=== PATIENT | male | born 1960 | race African-American/Black ===

== ENCOUNTER 2021-03-30 09:53 | Inpatient (IN) | payer OTHER ==
[2021-03-30] MEDS ORDERED: IBUPROFEN 400 MG TABLET (FP) PO PRN (11:02)
[2021-03-30] MEDS ORDERED: MAGNESIUM CITRATE 300 ML BOTTLE PO PRN (11:02)
[2021-03-30] MEDS ORDERED: MAGNESIUM HYDROX 2400MG/30ML ORAL SUSPENSION 30 ML CUP PO PRN (11:02)
[2021-03-30] MEDS ORDERED: diazePAM 5 MG TABLET PO PRN (11:02)
[2021-03-30] MEDS ORDERED: MENTHOL/PHENOL 1 EACH UD MM PRN (11:02)
[2021-03-30] MEDS ORDERED: MAG HYDROX/AL HYDROX/SIMETH 30 ML UNIT-DOSE CUP PO PRN (11:02)
[2021-03-30] MEDS ORDERED: ONDANSETRON *ODT* 4 MG TABLET SL PRN (11:02)
[2021-03-30] MEDS ORDERED: ACETAMINOPHEN 325 MG TABLET (FP) PO PRN ×2 (11:02)
[2021-03-30] MEDS ORDERED: BISMUTH SUBSALICYLATE 524 MG/30 ML PO PRN (11:02)
[2021-03-30] MEDS: hydrOXYzine PAMOATE 25 MG CAPSULE (FP) PO SCH ×3 (13:11→22:52)
[2021-03-30] MEDS: METHOCARBAMOL 500 MG TABLET PO PRN (13:12)
[2021-03-30 13:53] LABS: HEMATOCRIT 42.2 % (35.4-49); HEMOGLOBIN 14.4 GM/dL (11.7-16.9); MCHC 34.2 g/dl (32.0-35.9); MEAN CELL VOLUME 96.5 fl (80-96); MEAN PLT VOLUME 9.3 fl (7.5-11.1); PLATELET COUNT 319 10^3/uL (134-434); RBC 4.37 M/mm3 (4.00-5.60); RDW 13.7 % (11.9-15.9); WHITE BLOOD COUNT 6.1 K/mm3 (4.0-10.0)
[2021-03-30 14:03] LABS: CALCIUM 9.8 mg/dL (8.5-10.1)
[2021-03-30 14:04] LABS: BLOOD UREA NITROGEN 21.4 mg/dL (7-18)
[2021-03-30 14:07] LABS: CREATININE 1.5 mg/dL (0.55-1.3)
[2021-03-30 14:09] LABS: BILIRUBIN,TOTAL 1.1 mg/dL (0.2-1); TOT PROT 7.6 g/dl (6.4-8.2)
[2021-03-30] MEDS: HYDROCHLOROTHIAZIDE 25 MG TABLET (FP) PO SCH (18:55)
[2021-03-30] MEDS: diazePAM 5 MG TABLET PO SCH ×2 (18:55→22:53)
[2021-03-30] MEDS: THIAMINE HCL 100 MG TABLET (FP) PO SCH (22:52)
[2021-03-30] MEDS: MELATONIN 5 MG TABLETS PO SCH (22:52)
[2021-03-30] MEDS: MIRTAZAPINE 15 MG TABLET (FP) PO SCH (22:52)
[2021-03-31] MEDS: hydrOXYzine PAMOATE 25 MG CAPSULE (FP) PO SCH ×5 (05:42→22:23)
[2021-03-31] MEDS: diazePAM 5 MG TABLET PO SCH ×4 (05:42→22:24)
[2021-03-31] MEDS: METHOCARBAMOL 500 MG TABLET PO PRN (10:21)
[2021-03-31] MEDS: PRENATAL VITAMINS W/ FOLIC ACID TABLET (FP) PO SCH (10:21)
[2021-03-31] MEDS: HYDROCHLOROTHIAZIDE 25 MG TABLET (FP) PO SCH (10:21)
[2021-03-31] MEDS: ARIPiprazole 2 MG TABLET PO SCH (10:21)
[2021-03-31] MEDS: MELATONIN 5 MG TABLETS PO SCH (22:23)
[2021-03-31] MEDS: THIAMINE HCL 100 MG TABLET (FP) PO SCH (22:23)
[2021-03-31] MEDS: MIRTAZAPINE 15 MG TABLET (FP) PO SCH (22:25)
[2021-04-01] MEDS: diazePAM 5 MG TABLET PO SCH ×3 (06:00→21:54)
[2021-04-01] MEDS: hydrOXYzine PAMOATE 25 MG CAPSULE (FP) PO SCH ×5 (06:00→21:54)
[2021-04-01] MEDS: METHOCARBAMOL 500 MG TABLET PO PRN (10:31)
[2021-04-01] MEDS: HYDROCHLOROTHIAZIDE 25 MG TABLET (FP) PO SCH (10:31)
[2021-04-01] MEDS: ARIPiprazole 2 MG TABLET PO SCH (10:31)
[2021-04-01] MEDS: PRENATAL VITAMINS W/ FOLIC ACID TABLET (FP) PO SCH (10:32)
[2021-04-01] MEDS: THIAMINE HCL 100 MG TABLET (FP) PO SCH (21:54)
[2021-04-01] MEDS: MIRTAZAPINE 15 MG TABLET (FP) PO SCH (21:54)
[2021-04-01] MEDS: MELATONIN 5 MG TABLETS PO SCH (21:54)
[2021-04-02] MEDS: hydrOXYzine PAMOATE 25 MG CAPSULE (FP) PO SCH ×5 (06:48→22:16)
[2021-04-02] MEDS: diazePAM 5 MG TABLET PO SCH ×2 (06:48→17:37)
[2021-04-02] MEDS: PRENATAL VITAMINS W/ FOLIC ACID TABLET (FP) PO SCH (10:24)
[2021-04-02] MEDS: HYDROCHLOROTHIAZIDE 25 MG TABLET (FP) PO SCH (10:25)
[2021-04-02] MEDS: ARIPiprazole 2 MG TABLET PO SCH (11:45)
[2021-04-02 14:22] LABS: BLOOD UREA NITROGEN 19.3 mg/dL (7-18)
[2021-04-02 14:25] LABS: CREATININE 1.1 mg/dL (0.55-1.3)
[2021-04-02] MEDS: MIRTAZAPINE 15 MG TABLET (FP) PO SCH (22:15)
[2021-04-02] MEDS: THIAMINE HCL 100 MG TABLET (FP) PO SCH (22:15)
[2021-04-02] MEDS: MELATONIN 5 MG TABLETS PO SCH (22:15)
[2021-04-03] MEDS: hydrOXYzine PAMOATE 25 MG CAPSULE (FP) PO SCH ×2 (05:39→09:09)
[2021-04-03] MEDS ORDERED: diazePAM 5 MG TABLET PO ONE (06:00)
[2021-04-03] MEDS: PRENATAL VITAMINS W/ FOLIC ACID TABLET (FP) PO SCH (09:09)
[2021-04-03] MEDS: ARIPiprazole 2 MG TABLET PO SCH (09:09)
[2021-04-03] MEDS: HYDROCHLOROTHIAZIDE 25 MG TABLET (FP) PO SCH (09:09)
[2021-04-03 09:28] VITALS: BP 122/93; PULSE 95; TEMP 98.4
== END 2021-04-03 09:11 | disposition home or self-care (01) | DRG 774 ==
LOC: YASAS 09:53 → Y6N 12:09
PROVIDERS: ADMIT Allergy & Immunology; ATTEND Allergy & Immunology
PROC: HZ2ZZZZ Detoxification Services for Substance Abuse Treatment (ICD-10-PCS; principal; 2021-03-30)
DX: F10.230 Alcohol dependence with withdrawal, uncomplicated (principal); F14.20 Cocaine dependence, uncomplicated; F17.210 Nicotine dependence, cigarettes, uncomplicated; F29 Unspecified psychosis not due to a substance or known physiological condition; F32.9 Major depressive disorder, single episode, unspecified; I10 Essential (primary) hypertension; R79.89 Other specified abnormal findings of blood chemistry; Z62.810 Personal history of physical and sexual abuse in childhood; R63.4 Abnormal weight loss; Z68.20 Body mass index [BMI] 20.0-20.9, adult; Z59.0 Homelessness
CPT/HCPCS: 36415; 80053; 82565; 82962; 84520; 85027; 86780; 93005; 93010; C9803; U0003; U0005

== ENCOUNTER 2022-01-30 10:13 | Inpatient (IN) | payer OTHER ==
[2022-01-30 10:42] VITALS: BMI 19.0
[2022-01-30] MEDS ORDERED: P-EPHED 60MG/TRIPROLIDI 2.5MG TABLET PO PRN (10:51)
[2022-01-30] MEDS ORDERED: NICOTINE 10 MG CARTRIDGE (INHALER) IH PRN (10:51)
[2022-01-30] MEDS ORDERED: MAGNESIUM HYDROX 2400MG/30ML ORAL SUSPENSION 30 ML CUP PO PRN (10:51)
[2022-01-30] MEDS ORDERED: MAG HYDROX/AL HYDROX/SIMETH 30 ML UNIT-DOSE CUP PO PRN (10:51)
[2022-01-30] MEDS ORDERED: MAGNESIUM CITRATE 300 ML BOTTLE PO PRN (10:51)
[2022-01-30] MEDS ORDERED: ACETAMINOPHEN 325 MG TABLET (FP) PO PRN (10:51)
[2022-01-30] MEDS ORDERED: guaiFENesin 200 MG/10 ML 10 ML UNIT-DOSE CUPS PO PRN (10:51)
[2022-01-30] MEDS ORDERED: IBUPROFEN 400 MG TABLET (FP) PO PRN (10:51)
[2022-01-30] MEDS ORDERED: LOPERAMIDE HCL 2 MG CAPSULE PO PRN (10:51)
[2022-01-30] MEDS ORDERED: cloNIDine HCL 0.1 MG TABLET PO ONE (12:00)
[2022-01-30] MEDS: hydrOXYzine PAMOATE 25 MG CAPSULE (FP) PO SCH ×3 (15:08→21:19)
[2022-01-30] MEDS: HYDROCHLOROTHIAZIDE 25 MG TABLET (FP) PO SCH (15:13)
[2022-01-30] MEDS: PRENATAL VITAMINS W/ FOLIC ACID TABLET (FP) PO SCH (15:13)
[2022-01-30 15:20] LABS: HEMATOCRIT 39.8 % (35.4-49); HEMOGLOBIN 13.2 GM/dL (11.7-16.9); MCH 32.3 pg (25.7-33.7); MCHC 33.2 g/dl (32.0-35.9); MEAN CELL VOLUME 97.3 fl (80-96); MEAN PLT VOLUME 9.8 fl (7.5-11.1); PLATELET COUNT 260 10^3/uL (134-434); RDW 13.2 % (11.9-15.9); WHITE BLOOD COUNT 4.4 K/mm3 (4.0-10.0)
[2022-01-30 15:29] LABS: ALBUMIN 3.8 g/dl (3.4-5.0); CALCIUM 9.1 mg/dL (8.5-10.1)
[2022-01-30 15:30] LABS: BLOOD UREA NITROGEN 13.1 mg/dL (7-18)
[2022-01-30 15:32] LABS: CREATININE 1.3 mg/dL (0.55-1.3)
[2022-01-30 15:34] LABS: BILIRUBIN,TOTAL 0.7 mg/dL (0.2-1); TOT PROT 6.8 g/dl (6.4-8.2)
[2022-01-30 15:41] LABS: SYPHILIS W/ RPR CONF NON-REACTIVE (NONREACTIVE)
[2022-01-30] MEDS: MELATONIN 5 MG TABLETS PO SCH (21:19)
[2022-01-30] MEDS: THIAMINE HCL 100 MG TABLET (FP) PO SCH (21:20)
[2022-01-31] MEDS: hydrOXYzine PAMOATE 25 MG CAPSULE (FP) PO SCH ×5 (06:07→21:19)
[2022-01-31] MEDS: HYDROCHLOROTHIAZIDE 25 MG TABLET (FP) PO SCH (09:50)
[2022-01-31] MEDS: PRENATAL VITAMINS W/ FOLIC ACID TABLET (FP) PO SCH (09:50)
[2022-01-31] MEDS: NICOTINE 7 MG/24 HOURS TOPICAL PATCH TD SCH (09:50)
[2022-01-31 14:41] LABS: PH,URINE 5.5 (5.0-8.0); URINE APPEARANCE CLEAR; URINE BILIRUBIN NEGATIVE (NEGATIVE); URINE COLOR YELLOW; URINE GLUCOSE (UA) NEGATIVE (NEGATIVE); URINE KETONE NEGATIVE (NEGATIVE); URINE LEUK ESTERASE NEGATIVE (NEGATIVE); URINE NITRITE NEGATIVE (NEGATIVE); URINE PROTEIN NEGATIVE (NEGATIVE); URINE UROBILINOGEN 0.2 mg/dL (0.2-1.0)
[2022-01-31] MEDS: MELATONIN 5 MG TABLETS PO SCH (21:18)
[2022-01-31] MEDS: THIAMINE HCL 100 MG TABLET (FP) PO SCH (21:18)
[2022-02-01] MEDS: hydrOXYzine PAMOATE 25 MG CAPSULE (FP) PO SCH ×5 (06:14→21:47)
[2022-02-01] MEDS: NICOTINE 7 MG/24 HOURS TOPICAL PATCH TD SCH (10:10)
[2022-02-01] MEDS: PRENATAL VITAMINS W/ FOLIC ACID TABLET (FP) PO SCH (10:10)
[2022-02-01] MEDS: HYDROCHLOROTHIAZIDE 25 MG TABLET (FP) PO SCH (10:10)
[2022-02-01] MEDS: MELATONIN 5 MG TABLETS PO SCH (21:47)
[2022-02-01] MEDS: THIAMINE HCL 100 MG TABLET (FP) PO SCH (21:48)
[2022-02-02] MEDS: hydrOXYzine PAMOATE 25 MG CAPSULE (FP) PO SCH ×5 (07:28→21:38)
[2022-02-02] MEDS: NICOTINE 7 MG/24 HOURS TOPICAL PATCH TD SCH (09:36)
[2022-02-02] MEDS: HYDROCHLOROTHIAZIDE 25 MG TABLET (FP) PO SCH (09:36)
[2022-02-02] MEDS: PRENATAL VITAMINS W/ FOLIC ACID TABLET (FP) PO SCH (09:36)
[2022-02-02] MEDS: THIAMINE HCL 100 MG TABLET (FP) PO SCH (21:38)
[2022-02-02] MEDS: MELATONIN 5 MG TABLETS PO SCH (21:38)
[2022-02-03] MEDS: hydrOXYzine PAMOATE 25 MG CAPSULE (FP) PO SCH ×5 (06:49→21:34)
[2022-02-03] MEDS: PRENATAL VITAMINS W/ FOLIC ACID TABLET (FP) PO SCH (09:38)
[2022-02-03] MEDS: NICOTINE 7 MG/24 HOURS TOPICAL PATCH TD SCH (09:38)
[2022-02-03] MEDS: HYDROCHLOROTHIAZIDE 25 MG TABLET (FP) PO SCH (09:38)
[2022-02-03] MEDS: THIAMINE HCL 100 MG TABLET (FP) PO SCH (21:34)
[2022-02-03] MEDS: MELATONIN 5 MG TABLETS PO SCH (21:34)
[2022-02-04] MEDS: hydrOXYzine PAMOATE 25 MG CAPSULE (FP) PO SCH ×2 (07:06→09:59)
[2022-02-04] MEDS: HYDROCHLOROTHIAZIDE 25 MG TABLET (FP) PO SCH (09:59)
[2022-02-04] MEDS: NICOTINE 7 MG/24 HOURS TOPICAL PATCH TD SCH (09:59)
[2022-02-04] MEDS: PRENATAL VITAMINS W/ FOLIC ACID TABLET (FP) PO SCH (09:59)
[2022-02-04] MEDS ORDERED: hydrOXYzine PAMOATE 25 MG CAPSULE (FP) PO PRN (13:33)
[2022-02-04] MEDS: THIAMINE HCL 100 MG TABLET (FP) PO SCH (21:35)
[2022-02-04] MEDS: MELATONIN 5 MG TABLETS PO SCH (21:35)
[2022-02-05] MEDS: PRENATAL VITAMINS W/ FOLIC ACID TABLET (FP) PO SCH (09:50)
[2022-02-05] MEDS: NICOTINE 7 MG/24 HOURS TOPICAL PATCH TD SCH (09:50)
[2022-02-05] MEDS: HYDROCHLOROTHIAZIDE 25 MG TABLET (FP) PO SCH (09:50)
[2022-02-05] MEDS: THIAMINE HCL 100 MG TABLET (FP) PO SCH (21:27)
[2022-02-05] MEDS: MELATONIN 5 MG TABLETS PO SCH (21:27)
[2022-02-06] MEDS: HYDROCHLOROTHIAZIDE 25 MG TABLET (FP) PO SCH (09:37)
[2022-02-06] MEDS: NICOTINE 7 MG/24 HOURS TOPICAL PATCH TD SCH (09:38)
[2022-02-06] MEDS: PRENATAL VITAMINS W/ FOLIC ACID TABLET (FP) PO SCH (09:38)
[2022-02-06] MEDS: THIAMINE HCL 100 MG TABLET (FP) PO SCH (21:19)
[2022-02-06] MEDS: MELATONIN 5 MG TABLETS PO SCH (21:19)
[2022-02-07] MEDS: HYDROCHLOROTHIAZIDE 25 MG TABLET (FP) PO SCH (09:51)
[2022-02-07] MEDS: PRENATAL VITAMINS W/ FOLIC ACID TABLET (FP) PO SCH (09:52)
[2022-02-07] MEDS: NICOTINE 7 MG/24 HOURS TOPICAL PATCH TD SCH (09:52)
[2022-02-07] MEDS: THIAMINE HCL 100 MG TABLET (FP) PO SCH (21:18)
[2022-02-07] MEDS: MELATONIN 5 MG TABLETS PO SCH (21:18)
[2022-02-08] MEDS: HYDROCHLOROTHIAZIDE 25 MG TABLET (FP) PO SCH (10:03)
[2022-02-08] MEDS: NICOTINE 7 MG/24 HOURS TOPICAL PATCH TD SCH (10:04)
[2022-02-08] MEDS: PRENATAL VITAMINS W/ FOLIC ACID TABLET (FP) PO SCH (10:04)
[2022-02-08] MEDS: MELATONIN 5 MG TABLETS PO SCH (21:49)
[2022-02-08] MEDS: THIAMINE HCL 100 MG TABLET (FP) PO SCH (21:50)
[2022-02-09] MEDS: PRENATAL VITAMINS W/ FOLIC ACID TABLET (FP) PO SCH (09:43)
[2022-02-09] MEDS: HYDROCHLOROTHIAZIDE 25 MG TABLET (FP) PO SCH (09:43)
[2022-02-09] MEDS: NICOTINE 7 MG/24 HOURS TOPICAL PATCH TD SCH (09:44)
[2022-02-09] MEDS: MELATONIN 5 MG TABLETS PO SCH (21:17)
[2022-02-09] MEDS: THIAMINE HCL 100 MG TABLET (FP) PO SCH (21:17)
[2022-02-10] MEDS: HYDROCHLOROTHIAZIDE 25 MG TABLET (FP) PO SCH (10:06)
[2022-02-10] MEDS: PRENATAL VITAMINS W/ FOLIC ACID TABLET (FP) PO SCH (10:06)
[2022-02-10] MEDS: NICOTINE 7 MG/24 HOURS TOPICAL PATCH TD SCH (10:07)
[2022-02-10] MEDS: THIAMINE HCL 100 MG TABLET (FP) PO SCH (21:08)
[2022-02-10] MEDS: MELATONIN 5 MG TABLETS PO SCH (21:08)
[2022-02-11] MEDS: NICOTINE 7 MG/24 HOURS TOPICAL PATCH TD SCH (10:04)
[2022-02-11] MEDS: HYDROCHLOROTHIAZIDE 25 MG TABLET (FP) PO SCH (10:04)
[2022-02-11] MEDS: PRENATAL VITAMINS W/ FOLIC ACID TABLET (FP) PO SCH (10:04)
[2022-02-11] MEDS ORDERED: COLLOIDAL OATMEAL 1 BAR EACH TP PRN (17:28)
[2022-02-11] MEDS: THIAMINE HCL 100 MG TABLET (FP) PO SCH (21:30)
[2022-02-11] MEDS: MELATONIN 5 MG TABLETS PO SCH (21:30)
[2022-02-12] MEDS: PRENATAL VITAMINS W/ FOLIC ACID TABLET (FP) PO SCH (10:06)
[2022-02-12] MEDS: NICOTINE 7 MG/24 HOURS TOPICAL PATCH TD SCH (10:06)
[2022-02-12] MEDS: HYDROCHLOROTHIAZIDE 25 MG TABLET (FP) PO SCH (10:06)
[2022-02-12] MEDS: THIAMINE HCL 100 MG TABLET (FP) PO SCH (21:12)
[2022-02-12] MEDS: MELATONIN 5 MG TABLETS PO SCH (21:12)
[2022-02-13 06:34] VITALS: BP 164/83; PULSE 70; TEMP 97.3
== END 2022-02-13 07:28 | disposition home or self-care (01) | DRG 772 ==
LOC: YASAS 10:13 → Y3E 14:33
PROVIDERS: ADMIT Allergy & Immunology; ATTEND Psychiatry & Neurology Pain Medicine
PROC: HZ42ZZZ Group Counseling for Substance Abuse Treatment, Cognitive-Behavioral (ICD-10-PCS; principal; 2022-01-30)
DX: F14.20 Cocaine dependence, uncomplicated (principal); F12.20 Cannabis dependence, uncomplicated; F41.9 Anxiety disorder, unspecified; I10 Essential (primary) hypertension; G47.00 Insomnia, unspecified; R63.6 Underweight; Z68.1 Body mass index [BMI] 19.9 or less, adult; Z86.59 Personal history of other mental and behavioral disorders; Z87.891 Personal history of nicotine dependence
CPT/HCPCS: 36415; 80053; 81003; 85027; 86780; 86803; 87811; 93005; 93010; C9803-CS; U0003; U0005